=== PATIENT | male | born 1960 | race Caucasian/White ===

== ENCOUNTER → 2016-03-03 | Outpatient (CLI) | payer OTHER ==
[~2016-03-03] MED LIST: ASPIRIN81 M1 PO; CYCLOBENZAPRINE10 MG PO; HYDR25T PO; NAPROSYN500 MG PO; NORCO 325 MG-51 TAB PO; NORCO 5-325 TA1 EACH PO
== END | disposition home or self-care (01) ==
LOC: US 12:48
DX: L03.115 Cellulitis of right lower limb (principal); I82.401 Acute embolism and thrombosis of unspecified deep veins of right lower extremity

== ENCOUNTER 2017-04-19 09:30 | Emergency (ER) | payer OTHER ==
[~2017-04-19] VITALS: Ht 187.9 cm; Wt 120.2 kg
== END 2017-04-19 11:50 | disposition home or self-care (01) ==
LOC: ED 09:30
DX: S80.11XA Contusion of right lower leg, initial encounter (principal); F17.200 Nicotine dependence, unspecified, uncomplicated; X50.1XXA Overexertion from prolonged static or awkward postures, initial encounter; Y93.89 Activity, other specified; Y92.099 Unspecified place in other non-institutional residence as the place of occurrence of the external cause; Y99.8 Other external cause status

== ENCOUNTER 2018-02-07 14:47 | Emergency (ER) | payer OTHER ==
[~2018-02-07] VITALS: Ht 187.9 cm; Wt 127.0 kg
== END 2018-02-07 16:45 | disposition home or self-care (01) ==
LOC: ED 14:47
DX: S90.31XA Contusion of right foot, initial encounter (principal); G89.29 Other chronic pain; I10 Essential (primary) hypertension; Z79.899 Other long term (current) drug therapy; Z79.82 Long term (current) use of aspirin; Z90.49 Acquired absence of other specified parts of digestive tract; W31.89XA Contact with other specified machinery, initial encounter; Y93.89 Activity, other specified; Y92.59 Other trade areas as the place of occurrence of the external cause; Y99.8 Other external cause status

== ENCOUNTER 2020-07-16 11:08 | Emergency (ER) | payer OTHER ==
[~2020-07-16] VITALS: Wt 120.2 kg
[2020-07-16] MEDS ORDERED: OMEPRAZOLE40 MG PO (23:03)
== END 2020-07-16 15:56 | disposition home or self-care (01) ==
LOC: ED 11:08
DX: F45.8 Other somatoform disorders (principal); F17.200 Nicotine dependence, unspecified, uncomplicated; Z79.899 Other long term (current) drug therapy; Z79.82 Long term (current) use of aspirin; Z90.49 Acquired absence of other specified parts of digestive tract

== ENCOUNTER 2020-07-16 22:08 | Emergency (ER) | payer OTHER ==
[~2020-07-16] VITALS: Ht 187.9 cm; Wt 120.2 kg
[2020-07-16] MEDS ORDERED: OMEPRAZOLE40 MG PO (23:03)
== END 2020-07-16 23:05 | disposition home or self-care (01) ==
LOC: ED 22:08
DX: R14.1 Gas pain (principal); R14.2 Eructation; R10.13 Epigastric pain; Z79.899 Other long term (current) drug therapy; Z79.82 Long term (current) use of aspirin; Z90.49 Acquired absence of other specified parts of digestive tract

== ENCOUNTER 2021-04-08 18:41 | Emergency (ER) | payer OTHER ==
[~2021-04-08] VITALS: Ht 187.9 cm; Wt 99.8 kg
[~2021-04-08 18:41] MED LIST changes: +OMEPRAZOLE40 MG PO
== END 2021-04-08 20:49 | disposition home or self-care (01) ==
LOC: ED 18:41
DX: I87.2 Venous insufficiency (chronic) (peripheral) (principal); Z79.899 Other long term (current) drug therapy; Z79.82 Long term (current) use of aspirin; Z90.49 Acquired absence of other specified parts of digestive tract

== ENCOUNTER 2021-04-17 16:43 | Emergency (ER) | payer OTHER ==
[~2021-04-17] VITALS: Ht 187.9 cm; Wt 102.1 kg
[2021-04-17 18:54] LABS: BASO % 0.2 % (0.0-1.0); EOS % 0.2 % (1.0-4.0); LYMPH # 0.8 10*3/uL (1.3-4.4); LYMPH % 13.3 % (27.0-41.0); MEAN CORPUSCULAR HGB 31.7 pg (27.0-31.0); MEAN CORPUSCULAR HGB CONC 34.5 g/dl (33.0-37.0); MEAN PLATELET VOLUME 9.2 fl (9.6-12.3); MONO # 0.6 10*3/uL (0.1-1.0); MONO % 10.6 % (3.0-9.0); NEUT # 4.3 10*3/uL (2.3-7.9); NEUT % 75.2 % (47.0-73.0); PLATELET COUNT AUTOMATED 172 10*3/uL (130-400); RED BLOOD COUNT 4.35 10*6/uL (4.50-5.90); RED CELL DISTRI WIDTH 12.5 % (0-14.5); WHITE BLOOD COUNT 5.7 10*3/uL (4.8-10.8)
[2021-04-17 19:07] LABS: ACT PARTIAL THROMBO TIME 29.3 SECONDS (20.0-32.1); INTERNATIONAL NORM RATIO 1.3 (2.0-3.5)
[2021-04-17 19:30] LABS: BILIRUBIN Negative (Negative); BLOOD 1+ (Negative); CLARITY Clear (Clear); COLOR Dark Yellow (Yellow); GLUCOSE Negative (Negative); KETONE Negative (Negative); LEUKO ESTERASE 2+ (Negative); NITRITE Negative (Negative); PH 5.5 (4.5-8.0)
[2021-04-17 19:37] LABS: ALKALINE PHOSPHATASE 64 U/L (45-117); BUN 16 mg/dl (7-24); CHLORIDE 103 mmol/L (98-107); CREATININE 0.74 mg/dL (0.70-1.30); LIPASE 59 U/L (73-393); POTASSIUM 3.5 mmol/L (3.5-5.1); SGOT/AST 11 IU/L (3-35); SGPT/ALT 17 U/L (12-78); SODIUM 133 mmol/L (136-145); TOTAL PROTEIN 6.6 gm/dL (6.4-8.2)
[2021-04-17 20:00] LABS: BACTERIA 2+; EPITHELIAL CELLS 0-2; RBC 0-2 rbc/hpf (0-2); WBC TNTC wbc/hpf (0-5)
[2021-04-17] MEDS ORDERED: PAIN RELIE500 MG/15 PO (21:33)
== END 2021-04-17 22:05 | disposition home or self-care (01) ==
LOC: ED 16:43
PROVIDERS: Emergency Medicine
DX: B34.9 Viral infection, unspecified (principal); Z20.822 Contact with and (suspected) exposure to COVID-19; Z79.899 Other long term (current) drug therapy; Z90.49 Acquired absence of other specified parts of digestive tract

== ENCOUNTER 2021-10-24 11:40 | Emergency (ER) | payer OTHER ==
[~2021-10-24] VITALS: Ht 187.9 cm; Wt 102.1 kg
[~2021-10-24 11:40] MED LIST changes: +PAIN RELIE500 MG/15 PO
[2021-10-24] MEDS ORDERED: TYLENOL W/ CODE30 ML PO (14:03)
[2021-10-24] MEDS ORDERED: PREDNISOLO15 MG/5 M1 PO (14:03)
== END 2021-10-24 14:08 | disposition home or self-care (01) ==
LOC: ED 11:40
DX: S46.912A Strain of unspecified muscle, fascia and tendon at shoulder and upper arm level, left arm, initial encounter (principal); Z79.899 Other long term (current) drug therapy; Z90.49 Acquired absence of other specified parts of digestive tract; X50.1XXA Overexertion from prolonged static or awkward postures, initial encounter; Y93.89 Activity, other specified; Y92.89 Other specified places as the place of occurrence of the external cause; Y99.8 Other external cause status

== ENCOUNTER 2022-08-24 18:18 | Emergency (ER) | payer OTHER ==
[~2022-08-24] VITALS: Ht 187.9 cm; Wt 106.6 kg
[~2022-08-24 18:18] MED LIST changes: +PREDNISOLO15 MG/5 M1 PO; +TYLENOL W/ CODE30 ML PO
[2022-08-24] MEDS ORDERED: NAPROSYN500 MG PO (20:12)
[2022-08-24] MEDS ORDERED: CYCLOBENZAPRINE10 MG PO (20:12)
== END 2022-08-24 20:19 | disposition home or self-care (01) ==
LOC: ED 18:18
DX: S43.402A Unspecified sprain of left shoulder joint, initial encounter (principal); S09.90XA Unspecified injury of head, initial encounter; I10 Essential (primary) hypertension; Z90.49 Acquired absence of other specified parts of digestive tract; W01.198A Fall on same level from slipping, tripping and stumbling with subsequent striking against other object, initial encounter; Y93.89 Activity, other specified; Y92.89 Other specified places as the place of occurrence of the external cause; Y99.0 Civilian activity done for income or pay

== ENCOUNTER 2024-08-23 09:43 | Emergency (ER) | payer OTHER ==
[~2024-08-23] VITALS: Ht 187.9 cm; Wt 117.9 kg
[2024-08-23] MEDS ORDERED: ASPIRIN CHEWABL81 MG PO (10:22)
[2024-08-23] MEDS ORDERED: KEFLEX 500 MG E2 CAP PO (11:33)
== END 2024-08-23 11:46 | disposition home or self-care (01) ==
LOC: ED 09:43
DX: L03.115 Cellulitis of right lower limb (principal); Z79.899 Other long term (current) drug therapy; Z79.82 Long term (current) use of aspirin; Z90.49 Acquired absence of other specified parts of digestive tract